=== PATIENT | female | born 1945 | race Caucasian/White ===

== ENCOUNTER 2016-09-04 18:24 | Emergency (ER) | payer BC, MEDICARE ==
[2016-09-04 19:01] LABS: BASOPHILS % (AUTO) 1 % (0-3); EOSINOPHILS % (AUTO) 0 % (0-9); HEMATOCRIT 38 % (35-47); MEAN CORPUSCULAR HGB CONC 34.4 gm/dl (32.0-36.0); MEAN CORPUSCULAR VOLUME 87 fL (81-99); MONOCYTES % (AUTO) 11.4 % (0-12); NEUTROPHILS % (AUTO) 66.1 % (37-80)
[2016-09-04 19:08] LABS: CALCIUM 8.7 mg/dl (8.5-10.1); POTASSIUM 3.8 mMol/L (3.5-5.1)
[2016-09-04 19:11] LABS: APPEARANCE,URINE Slightly Cloudy; BILIRUBIN,URINE NEGATIVE (NEGATIVE); COLOR,URINE Yellow; GLUCOSE, URINE (UA) NEGATIVE (NEGATIVE); KETONES,URINE 1+ (NEGATIVE); LEUKOCYTE ESTERASE ,URINE 1+ (NEGATIVE); NITRATE,URINE NEGATIVE (NEGATIVE); OCCULT BLOOD,URINE TRACE INTACT (NEG-TRACE); PH,URINE 5.5; UROBILINOGEN,URINE 0.2 (0.2-1.0 EU)
[2016-09-04 19:26] LABS: RBC,URINE 0-1 (0-3AV/HPF)
[2016-09-04 19:37] VITALS: TEMP 98.7
[2016-09-04 20:26] VITALS: BP 116/53; PULSE 71; RESP 14; O2SAT 95
== END 2016-09-04 20:34 | disposition home or self-care (01) ==
LOC: ED 18:24
DX: R55 Syncope and collapse (principal); E86.0 Dehydration; E87.1 Hypo-osmolality and hyponatremia; N39.0 Urinary tract infection, site not specified
CPT/HCPCS: 36415; 80048; 81001; 85025; 87088; 93005; 99283; 99284